=== PATIENT | male | born 1970 | race Caucasian/White ===

== ENCOUNTER → 2017-07-24 | Day surgery (SDC) | payer OTHER ==
[~2017-07-24] MED LIST: ACETAMINOPHEN 1000 MG/100 ML 100 ML IV ONE; BACITRACIN TOP OINT 15 GM TUBE ONE; BUPIVACAINE HCL PF 0.25% 30 ML VIAL ONE; BUSP5TAB PO; KETOROLAC TROMETHAMINE 30 MG/ML (IVP) VIAL IV PUSH ONE; LACTATED RINGER'S 1000 ML INJ 1,000 ML ONE; MEPERIDINE HCL 50 MG/ML VIAL ONE; MIDAZOLAM HCL 2 MG/2 ML VIAL ONE; NEOMYCIN/POLYMYXIN/BACITRACIN OINT 15 GM TUBE ONE; ONDANSETRON HCL 4 MG/2 ML VIAL IV PUSH ONE; PROPOFOL 200 MG/20 ML AMP IV ONE; ZITHTAB PO; ceFAZolin INJ 1,000 MG VIAL ONE
--- NOTE | 2017-07-24 14:18 | TN ---
cc: Pedro Fabian MD DATE OF SURGERY: 07/24/2017 PREOPERATIVE DIAGNOSIS: Symptomatic enlarging umbilical hernia, chronically incarcerated with fat. POSTOPERATIVE DIAGNOSIS: Symptomatic enlarging umbilical hernia, chronically incarcerated with fat. PROCEDURE PERFORMED: Reduction and repair, incarcerated umbilical hernia with mesh. SURGEON: Perdo Fabian MD PERSONAL SECURITY SPECIALIST: NIMO Jones ANESTHESIA: General LMA. COMPLICATIONS: None. INDICATION FOR PROCEDURE: Mr. Ying is a pleasant 47-year-old gentleman who has had an umbilical hernia for about 3 years. In the last several months, he has noted that it has gotten much larger and started becoming more painful. He was seen and evaluated in the office and offered elective repair. On exam in the office, he had what appeared to be chronically incarcerated fat that was unable to be reduced. Risks and benefits of the repair with mesh were discussed with him and he was agreeable. PROCEDURE DETAILS: The patient was identified, brought to the operating room, placed supine on the operating table. After adequate general anesthesia achieved LMA, the anterior abdomen was prepped and draped in standard surgical fashion. Infraumbilical space anesthetized with 0.25% Marcaine. Infraumbilical incision was made. Dissection was carried down to subcutaneous tissue, identifying the hernia sac and umbilical stalk. Hernia sac and umbilical stalk were dissected circumferentially. Hernia sac was then dissected off of the umbilical stalk and reduced back into the abdominal cavity. The fascial defect was identified and the surrounding tissue was dissected off of it, identifying the fascia circumferentially for about 1 cm in all directions. Attention was now directed to repair. Repair was accomplished using a 2 layer technique. First, the fascia was sewn back together primarily using a 0 Prolene suture, interrupted x 4. Once we did this, an onlay mesh was placed over the repair. Generous margins were obtained in all directions for the mesh overlay. Mesh was then secured in the corners using a 2-0 Prolene suture. Mesh was secured to the superior and inferior border of the mesh also using a 2-0 Prolene. Once the repair was completed, it was inspected. There was generous mesh overlap in all directions and no tension. The wound was then copiously irrigated with normal saline solution. Fascia and subcutaneous tissue were then infiltrated with additional local anesthetic. The umbilical stalk was then tacked down to the abdominal wall using a 3-0 Vicryl suture. Subcutaneous tissue was closed with 3-0 Vicryl. Skin was closed with a 4-0 Vicryl. Sterile dressings were applied, and the patient was awakened, brought to recovery in stable condition. 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 She also has extensive knowledge of my surgical technique. MD MADONNA Lombardi/NATALYA , 02:00 PM , 02:16 PM
== END | disposition home or self-care (01) ==
LOC: ESDC 11:28
PROVIDERS: ATTEND Surgery Trauma Surgery
DX: K42.0 Umbilical hernia with obstruction, without gangrene (principal)
CPT/HCPCS: 00750; 49587; C1781; J0131; J0690; J1885; J2175; J2250; J2405; J3010; J7120